=== PATIENT | male | born 1985 | race African-American/Black ===

== ENCOUNTER 2016-12-29 12:40 | Emergency (ER) | payer SELFPAY ==
[~2016-12-29] VITALS: Ht 175.3 cm; Wt 94.0 kg
[2016-12-29] MEDS ORDERED: HYDROCODONE/ACETAMINOPHEN 5/325MG TABLET PO ONE (18:30)
[2016-12-29 19:05] VITALS: BP 131/93
== END 2016-12-29 19:34 | disposition home or self-care (01) ==
LOC: ER 15:16
DX: S63.501A Unspecified sprain of right wrist, initial encounter (principal); F17.210 Nicotine dependence, cigarettes, uncomplicated; F12.10 Cannabis abuse, uncomplicated; W01.0XXA Fall on same level from slipping, tripping and stumbling without subsequent striking against object, initial encounter; Y93.89 Activity, other specified; Y92.018 Other place in single-family (private) house as the place of occurrence of the external cause
CPT/HCPCS: 73090; 73110; 73130; 99284; Z7610